=== PATIENT | male | born 1945 | race Caucasian/White ===

== ENCOUNTER → 2023-06-03 | Outpatient (CLI) | payer MEDICARE ==
[2023-06-03 14:57] LABS: Basophils # (A) 0.03 X 10*3/uL (0.00-0.10); Basophils % (A) 0.4 %; Eosinophils # (A) 0.11 X 10*3/uL (0.04-0.35); Eosinophils % (A) 1.3 %; HCT 41.5 % (39.6-50.0); HGB 13.6 g/dL (13.0-17.0); Lymphocytes # (A) 1.47 X 10*3/uL (0.90-5.00); Lymphocytes % (A) 17.7 %; MCH 31.4 pg (27.0-32.0); MCHC 32.8 g/dL (32.0-37.0); MCV 95.8 FL (80.0-97.0); Mean Platelet Volume 10.5 FL (9.5-12.2); Monocytes # (A) 0.54 X 10*3/uL (0.20-1.00); Monocytes % (A) 6.5 %; NRBC Per 100 WBC 0 X 10*3/uL (0.00-0.01); Neutrophils # (A) 6.12 X 10*3/uL (1.80-7.70); Neutrophils % (A) 73.9 %; Platelet Count 174 X 10*3/uL (140-440); RBC 4.33 X 10*6/uL (4.40-5.60); RDW 13.2 % (11.5-14.5); WBC 8.29 X 10*3/uL (4.50-10.00)
== END | disposition home or self-care (01) ==
LOC: LABPAT 11:27
PROVIDERS: ATTEND Surgery
DX: Z01.818 Encounter for other preprocedural examination (principal); K40.90 Unilateral inguinal hernia, without obstruction or gangrene, not specified as recurrent
CPT/HCPCS: 85025; 86850; 86900; 86901; 93005

== ENCOUNTER 2023-06-18 06:45 | Day surgery (SDC) | payer MEDICARE ==
[2023-06-16 09:34] VITALS: BMI 29.0
[~2023-06-18 06:45] MED LIST: ACETAMINOPHEN TAB 500 MG TAB PO PRN; DEXAMETHASONE SOD PHOSPHATE 4 MG/ML 1 ML VIAL IV ONE; HEPARIN SODIUM,PORCINE 5,000 UNIT/ML 1 ML VIAL SQ PRN; LACTATED RINGERS 1,000 ML IV SCH; LIDOCAINE 1% (10MG/ML) FOR IV START INTRADERMA PRN; ONDANSETRON 4 MG/2 ML VIAL IVP ONE; droPERidol 5 MG/2 ML VIAL IVP ONE
[2023-06-18] MEDS ORDERED: fentaNYL (PF) 50 MCG/ML 2 ML AMP IV PRN (07:00)
[2023-06-18 07:28] VITALS: RESP 16
[2023-06-18] MEDS ORDERED: SODIUM CHLORIDE 0.9% 1,000 ML IV ONE (07:30)
[2023-06-18 07:44] LABS: Glucose,Whole Blood 133 mg/dL (70-110)
[2023-06-18 08:16] LABS: Partial Thromboplastin Time 23.2 sec (22.0-30.0); Prothrombin Time 11.2 sec (10.0-12.5)
[2023-06-18 08:55] LABS: ALT 27 U/L (4-49); AST 31 U/L (17-59); African American GFR (CKD) 37 (>60 ml/min/1.73 sqM); Albumin 3.8 g/dL (3.5-5.0); Alkaline Phosphatase 56 U/L (38-126); Anion Gap 11 mmol/L; Blood Urea Nitrogen 42 mg/dL (9-20); Calcium 9.2 mg/dL (8.4-10.2); Carbon Dioxide 19 mmol/L (22-30); Chloride 108 mmol/L (98-107); Glucose 135 mg/dL (74-99); Non-African American GFR(CKD) 32 (>60 ml/min/1.73 sqM); Potassium 4.1 mmol/L (3.5-5.1); Sodium 138 mmol/L (137-145); Total Bilirubin 0.8 mg/dL (0.2-1.3); Total Protein 6.8 g/dL (6.3-8.2)
[2023-06-18] MEDS ORDERED: fentaNYL (PF) 50 MCG/ML 2 ML AMP ONE (08:57)
[2023-06-18] MEDS ORDERED: ETOMIDATE 2 MG/ML 10 ML VIAL ONE (08:57)
[2023-06-18] MEDS ORDERED: ROCURONIUM 10 MG/ML (5 ML VIAL) IV ONE (08:57)
[2023-06-18] MEDS ORDERED: LABETALOL 5 MG/ML VIAL MDV ONE (08:57)
[2023-06-18] MEDS ORDERED: SUCCINYLCHOLINE CHLORIDE 200 MG/10 ML VIAL IV ONE (08:57)
[2023-06-18] MEDS ORDERED: LIDOCAINE 1% INJ 10MG/ML (20 ML MDV) ONE (08:57)
[2023-06-18] MEDS ORDERED: NEOSTIGMINE 1 MG/ML 10 ML VIAL ONE (08:57)
[2023-06-18] MEDS ORDERED: GLYCOPYRROLATE 0.2 MG/ML 2 ML VIAL ONE (08:57)
[2023-06-18] MEDS ORDERED: HEPARIN SODIUM,PORCINE 5,000 UNIT/ML 1 ML VIAL SQ ONE (08:59)
[2023-06-18] MEDS ORDERED: LIDOCAINE 0.5%-EPI 1:200,000 50 ML VIAL SQ ONE (09:40)
--- NOTE | 2023-06-18 10:12 | P.OP ---
Date of Procedure: 06/18/23 Preoperative Diagnosis: Left inguinal hernia Postoperative Diagnosis: Left inguinal hernia Procedure(s) Performed: Laparoscopic robotic system repair of left we will hernia Partial omentectomy Transversus abdominis plane block Anesthesia: UGO Surgeon: Quinton Neri Pathology: other (Omentum) Condition: stable Disposition: PACU Description of Procedure: The patient's placed on the operating table in the supine position. The patient received general anesthesia. The patient's abdomen was prepped and draped in usual sterile fashion. The skin was anesthetized 1% local Xylocaine at the incision sites. Using an 11 blade a skin incision was made at the umbilicus. The fascia was grasped with a Rayray and then the peritoneal cavity was entered with the Veress needle. Position of the Veress needle was confirmed with a positive drop test. After adequate insufflation a 5 mm trocar was placed into the peritoneal cavity. The Laparoscope was placed the peritoneal cavity. And a robotic 8 mm trocar was placed in the right lateral position and then another 8 mm robotic trochars placed in the left lateral position. The original 5 mm trocar was exchanged for a 12 mm trocar. The A four-quadrant transversus abdominis plane block was performed with 1% local Xylocaine. The patient was placed in reverse Trendelenburg and then the patient was docked to the robot. In the pelvis today. Portion of omentum which was infarcted. This was dissected free sent to pathology. Next the peritoneum over top of the hernia was incised and then using blunt and sharp dissection and electrocautery the hernia sac was dissected free from the floor of the inguinal canal. The hernia sac was completely reduced into the peritoneal cavity. And then using the Pro it desktop support technician mesh the hernia was repaired. The peritoneum was then sutured with 20V lock suture. The patient was then undocked the robot. The needle was withdrawn from the peritoneal cavity. The umbilical trocar site was closed with 0 Ethibond suture. The skin was closed interrupted 3-0 Monocryl suture. Dermabond dressing was applied. Patient was sent to recovery in stable condition.
[2023-06-18 10:18] VITALS: TEMP 97.8
[2023-06-18 10:32] LABS: Glucose,Whole Blood 219 mg/dL (70-110)
[2023-06-18 12:15] VITALS: BP 158/76; PULSE 71
== END 2023-06-18 12:46 | disposition home or self-care (01) ==
LOC: OR 06:45
PROVIDERS: ATTEND Surgery
DX: K40.90 Unilateral inguinal hernia, without obstruction or gangrene, not specified as recurrent (principal); I96 Gangrene, not elsewhere classified
CPT/HCPCS: 49650; S2900; 80053; 85610; 85730; 86850; 86900; 86901; 88305

== ENCOUNTER → 2023-08-25 | Outpatient (CLI) | payer MEDICARE ==
--- NOTE | 2023-08-25 18:18 | MR ---
EXAMINATION TYPE: MR Prostate wo/w con DATE OF EXAM: 08/25/2023 9:08 AM COMPARISON: None. CLINICAL INDICATION:Male, 78 years old with history of R97.20 ELEVATED PROSTATE SPECIFIC ANTIGEN; Miriam vated PSA. TECHNIQUE: Multi-planar, multi-sequence imaging of the pelvis is performed prior to and following the uncomplicated administration of bolus intravenous gadolinium. CONTRAST: 8 Gadavist Interpretive Criteria: PI-RADS v2.1 SERUM PSA: PSA 3--24 = 9.05 PSA prior to this one is 6.25 SURGICAL PATHOLOGY: No data available. FINDINGS: Prostatic dimensions: 5.8 x 6.9 x 4.7 cm. Ellipsoid Volume:98.49 (PSA density=0.09 ng/mL/mL) CENTRAL GLAND (Central and Transition Zones/CZ+TZ): Low T2 high DWI and low ADC lesion within the right central gland apex measuring 15 x 13 x 17 mm. The re is arterial enhancement within this lesion. (PI-RADS 5) PERIPHERAL ZONE (PZ): Bilateral linear, indistinct wedgelike areas of low ADC, and low T2 signal, No evidence of masslike a bnormality, or localized perfusional hypervascularity, to further suggest a focus of clinically signi ficant prostate cancer. (PI-RADS 2) SEMINAL VESICLES (SV): Symmetric and unremarkable. PERIPROSTATIC TISSUES: Unremarkable. LYMPH NODES: No enlarged pelvic lymph node. REMAINING PELVIS: Bladder wall is within normal limits given distention. No abnormal free or organized intrapelvic fluid collection. No pathologic bowel dilation or mural thickening. No hernia visualized Small bilateral hydroceles. OSSEOUS STRUCTURES: No suspicious osseous abnormality. IMPRESSION: 1. PI-RADS 5 lesion in the right central gland apex measuring 15 x 13 mm. 2. Substantial BPH, estimated gland volume 98.49 mL. 3. No suspicious osseous lesion. No lymphadenopathy. No evidence of prostate adenocarcinoma involving the periprostatic tissues.
== END | disposition home or self-care (01) ==
LOC: RADMRIMAIN 07:30
PROVIDERS: ATTEND Urology
DX: N40.0 Benign prostatic hyperplasia without lower urinary tract symptoms (principal); R97.20 Elevated prostate specific antigen [PSA]
CPT/HCPCS: 72197; A9585

== ENCOUNTER 2023-09-03 13:07 | Emergency (ER) | payer MEDICARE ==
--- NOTE | 2023-09-03 14:05 | XR ---
EXAMINATION TYPE: XR chest 2V DATE OF EXAM: 09/03/2023 1:33 PM CLINICAL INDICATION:Male, 78 years old with history of Weakness; [facility] COMPARISON: None TECHNIQUE: XR chest 2V Frontal and lateral views of the chest. FINDINGS: Lungs/Pleura: Prominent interstitial lung markings are seen scattered throughout the lungs. No eviden ce of focal consolidation, pneumothorax or pleural effusion. Pulmonary vascularity: Unremarkable. Heart/mediastinum: Cardiomediastinal silhouette is unremarkable. Musculoskeletal: No acute osseous pathology. IMPRESSION: Increased interstitial lung markings without acute pulmonary process.
--- NOTE | 2023-09-03 14:09 | ED ---
Weakness HPI - General Source: patient, family, RN notes reviewed Mode of arrival: wheelchair Limitations: no limitations <Elizabeth Sherwood - Last Filed: 09/03/23 14:08> - General Source: patient, family, RN notes reviewed Mode of arrival: wheelchair Limitations: no limitations <Anel Gunter - Last Filed: 09/04/23 20:34> - General Chief complaint: Weakness Stated complaint: Irregular BP 181/80 Time Seen by Provider: 09/03/23 14:08 - History of Present Illness Initial comments: Patient is a 78-year-old male presented to the ER with chief complaint of weakness and dizziness. states he started to have weak legs this morning around 7 AM. He also was hypertensive per . The symptoms are similar to previous heart attack. Patient denies any current pain. (Elizabeth Sherwood) 78-year-old male presents emergency department chief complaint of weakness and fatigue. He states that this morning after he took out his dog for a walk he had a weakness sensation in his legs and associated headache. Patient states that he has been feeling off this morning. Denies shortness of breath, cough, congestion, chest pain or pressure. Patient has a history of 2 MIs in . Patient denies history of stroke. Patient states that he has cervical stenosis in his spine that leads to chronic headaches that he sometimes suffers from for 3 weeks at a time. Denies focal neurological deficits at time of weakness such as slurred speech, muscle weakness, facial drooping. (Anel Gunter) - Related Data Home Medications Medication Instructions Recorded Confirmed Aspirin 81 mg PO DAILY 11/03/13 09/03/23 Ezetimibe [Zetia] 10 mg PO DAILY 11/03/13 09/03/23 Isosorbide Mononitrate [Imdur] 30 mg PO DAILY 11/03/13 09/03/23 Atorvastatin [Lipitor] 80 mg PO DAILY 06/16/23 09/03/23 Insulin Glargine,Hum.rec.anlog 55 units SQ BID 06/16/23 09/03/23 [Jose Antonio Solostrobert] Umeclidinium Olds [Incruse 1 puff INHALATION RT-DAILY PRN 06/16/23 09/03/23 Ellipta] Warfarin [Coumadin] 4 mg PO SA@2100 06/16/2309/02/24 Warfarin [Coumadin] 9 mg PO SUMOTUWETHFR@209906/16/23 09/03/23 busPIRone HCL [Buspar] 7.5 mg PO BID 06/16/23 09/03/23 hydroCHLOROthiazide 12.5 mg PO DAILY 06/16/23 09/03/23 lisinopriL [Prinivil] 20 mg PO BID 06/16/23 09/03/23 Albuterol Inhaler [Ventolin Hfa 2 puff INHALATION RT-Q6H PRN 09/03/23 09/03/23 Inhaler] Budesonide/Formoterol Fumarate 2 puff INHALATION RT-BID PRN 09/03/23 09/03/23 [Symbicort 160-4.5 Mcg Inhaler] Celecoxib [CeleBREX] 200 mg PO HS 09/03/23 09/03/23 Cholecalciferol [Vitamin D3 (25 25 mcg PO DAILY 09/03/23 09/03/23 Mcg = 1000 Iu)] Metoprolol Succinate [Metoprolol 25 mg PO DAILY 09/03/23 09/03/23 Succinate ER] Omeprazole [PriLOSEC] 20 mg PO DAILY 09/03/23 09/03/23 Tamsulosin [Flomax] 0.4 mg PO HS 09/03/23 09/03/23 Warfarin [Coumadin] 3 mg PO SA@209909/03/23 09/03/23 Allergies Allergy/AdvReac Type Severity Reaction Status Date / Time codeine Allergy Anaphylaxis Verified 09/03/23 18:06 Review of Systems ROS Other: All systems not noted in ROS Statement are negative. <Elizabeth Sherwood - Last Filed: 09/03/23 14:08> ROS Other: All systems not noted in ROS Statement are negative. <Anel Gunter - Last Filed: 09/04/23 20:34> ROS Statement: Those systems with pertinent positive or pertinent negative responses have been documented in the HPI. Past Medical History Past Medical History: Blood Disorder, Coronary Artery Disease (CAD), COPD, Diabetes Mellitus, Deep Vein Thrombosis (DVT), GERD/Reflux, Hearing Disorder / Deafness, Hyperlipidemia, Hypertension, Myocardial Infarction (VA), Osteoarthritis (OA), Pulmonary Embolus (PE), Sleep Apnea/CPAP/BIPAP Additional Past Medical History / Comment(s): Factor 5. VA X2 in 2004 "one right after the other". Hx PE in 2005, DVT in 2005. Low functioning kidneys. Migraines. No CPAP use. Circulation problems in feet and legs. Last Myocardial Infarction Date:: 2004 History of Any Multi-Drug Resistant Organisms: None Reported Past Surgical History: Hernia Repair, Orthopedic Surgery Additional Past Surgical History / Comment(s): Left elbow repair X2, hernia X2 repair - "a single and then a double". Past Anesthesia/Blood Transfusion Reactions: No Reported Reaction Past Psychological History: No Psychological Hx Reported Smoking Status: Former smoker Past Alcohol Use History: None Reported Past Drug Use History: None Reported - Past Family History Brother(s) Family Medical History: Deep Vein Thrombosis (DVT) <Elizabeth Sherwood - Last Filed: 09/03/23 14:08> General Exam Limitations: no limitations <Elizabeth Sherwood - Last Filed: 09/03/23 14:08> Limitations: no limitations General appearance: alert, in no apparent distress Head exam: Present: atraumatic, normocephalic, normal inspection Eye exam: Present: normal appearance, PERRL, EOMI. Absent: scleral icterus, conjunctival injection, periorbital swelling ENT exam: Present: normal exam, mucous membranes moist Neck exam: Present: normal inspection. Absent: tenderness, meningismus, lymphadenopathy Respiratory exam: Present: normal lung sounds bilaterally. Absent: respiratory distress, wheezes, rales, rhonchi, stridor Cardiovascular Exam: Present: regular rate, normal rhythm, normal heart sounds. Absent: systolic murmur, diastolic murmur, rubs, gallop, clicks GI/Abdominal exam: Present: soft, normal bowel sounds. Absent: distended, tenderness, guarding, rebound, rigid Extremities exam: Present: normal inspection, full ROM, normal capillary refill. Absent: tenderness, pedal edema, joint swelling, calf tenderness Back exam: Present: normal inspection Neurological exam: Present: alert, oriented X3, CN II-XII intact Psychiatric exam: Present: normal affect, normal mood Skin exam: Present: warm, dry, intact, normal color. Absent: rash <Anel Gunter - Last Filed: 09/04/23 20:34> - General Exam Comments Initial Comments: Visual Physical Exam Vital signs reviewed General: Well-appearing, nontoxic, no acute distress. Head: Normocephalic, atraumatic Eyes: PERRLA, EOMI ENT: Airway patent Chest: Nonlabored breathing Skin: No visual rash, normal skin tone Neuro: Alert and oriented 3 Musculoskeletal: No gross abnormalities (Elizabeth Sherwood) Was pt. sent in by a medical professional or institution (, YOAN, PRINCIPAL CLERK, urgent care, hospital, or intermediate...) When possible be specific @ -[No] Did you speak to anyone other than the patient for history (EMS, parent, family, police, friend...)? What history was obtained from this source @ -[No] Did you review nursing and triage notes (agree or disagree)? Why? @ -[I reviewed and agree with nursing and triage notes] Were old charts reviewed (outside hosp., previous admission, EMS record, old EKG, old radiological studies, urgent care reports/EKG's, intermediate records)? Report findings @ -[No old charts were reviewed] Differential Diagnosis (chest pain, altered mental status, abdominal pain women, abdominal pain men, vaginal bleeding, weakness, fever, dyspnea, syncope, headache, dizziness, GI bleed, back pain, seizure, CVA, palpatations, mental health, musculoskeletal)? @ -Differential Weakness: Hypoglycemia, shock, sepsis, hyponatremia, anemia, infection, VA, ETOH, adverse medicine reaction, overdose, stroke, this is not meant to be an all-inclusive list. EKG interpreted by me (3pts min.). @ -[As above] X-rays interpreted by me (1pt min.). @ -X-ray with increased interstitial lung markings with no acute cardio process noted CT interpreted by me (1pt min.). @ -[None done] U/S interpreted by me (1pt. min.). @ -[None done] What testing was considered but not performed or refused? (CT, X-rays, U/S, labs)? Why? @ -[None] What meds were considered but not given or refused? Why? @ -[None] Did you discuss the management of the patient with other professionals (professionals i.e. , YOAN, PRINCIPAL CLERK, lab, RT, psych nurse, social worker psychiatric, airframe technical officer, teacher, emergency response officer, case supervisor)? Give summary @ -[No] Was smoking cessation discussed for >3mins.? @ -[No] Was critical care preformed (if so, how long)? @ -[No] Were there social determinants of health that impacted care today? How? (Homelessness, low income, unemployed, alcoholism, drug addiction, transportation, low edu. Level, literacy, decrease access to med. care, nursing home, rehab)? @ -[No] Was there de-escalation of care discussed even if they declined (Discuss DNR or withdrawal of care, Hospice)? DNR status @ -[No] What co-morbidities impacted this encounter? (DM, HTN, Smoking, COPD, CAD, Cancer, CVA, ARF, Chemo, Hep., AIDS, mental health diagnosis, sleep apnea, morbid obesity)? @ -[None] Was patient admitted / discharged? Hospital course, mention meds given and route, prescriptions, significant lab abnormalities, going to OR and other pertinent info. @ -Charged. 78-year-old male with chief complaint of dizziness and weakness. Patient was found to have a benign complete physical exam. Patient states that he reports elevated blood pressures at home over the past few weeks. Patient states that he is feeling better after he was given oral Tylenol and IV fluids. Patient presented no acute signs of stroke and/or heart attack. Undiagnosed new problem with uncertain prognosis? @ -[No] Drug Therapy requiring intensive monitoring for toxicity (Heparin, Nitro, Insulin, Cardizem)? @ -[No] Were any procedures done? @ -[No] Diagnosis/symptom? @ -[default] Acute, or Chronic, or Acute on Chronic? @ -[default] Uncomplicated (without systemic symptoms) or Complicated (systemic symptoms)? @ -[default] Side effects of treatment? @ -[No] Exacerbation, Progression, or Severe Exacerbation? @ -[No] Poses a threat to life or bodily function? How? (Chest pain, USA, VA, pneumonia, PE, COPD, DKA, ARF, appy, cholecystitis, CVA, Diverticulitis, Homicidal, Suici inga, threat to staff... and all critical care pts) @ -[No] (Anel Gunter) Course Vital Signs 09/03/23 09/03/23 09/03/23 13:13 16:43 18:37 Temperature 97.9 F 97.9 F 98.0 F Pulse Rate 65 59 L 58 L Respiratory 16 18 18 Rate Blood Pressure 167/77 186/95 185/98 O2 Sat by Pulse 96 97 97 Oximetry Medical Decision Making <Elizabeth Sherwood - Last Filed: 09/03/23 14:08> - Lab Data Result diagrams: 09/03/23 14:19 09/03/23 14:19 <Anel Gunter - Last Filed: 09/04/23 20:34> - Medical Decision Making I performed the quick note portion of this chart. Electronically signed by Reddy PA-C (Elizabeth Sherwood) Was pt. sent in by a medical professional or institution (YOAN Owens, PRINCIPAL CLERK, urgent care, hospital, or intermediate...) When possible be specific @ -No Did you speak to anyone other than the patient for history (EMS, parent, family, police, friend...)? What history was obtained from this source @ -No Did you review nursing and triage notes (agree or disagree)? Why? @ -I reviewed and agree with nursing and triage notes Were old charts reviewed (outside hosp., previous admission, EMS record, old EKG, old radiological studies, urgent care reports/EKG's, intermediate records)? Report findings @ -No old charts were reviewed Differential Diagnosis (chest pain, altered mental status, abdominal pain women, abdominal pain men, vaginal bleeding, weakness, fever, dyspnea, syncope, headache, dizziness, GI bleed, back pain, seizure, CVA, palpatations, mental health, musculoskeletal)? @ -Differential Weakness: Hypoglycemia, shock, sepsis, hyponatremia, anemia, infection, VA, ETOH, adverse medicine reaction, overdose, stroke, this is not meant to be an all-inclusive list. EKG interpreted by me (3pts min.). @ -none X-rays interpreted by me (1pt min.). @X-ray with increased interstitial lung markings, no acute cardio process noted CT interpreted by me (1pt min.). @ -None done U/S interpreted by me (1pt. min.). @ -None done What testing was considered but not performed or refused? (CT, X-rays, U/S, labs)? Why? @ -None What meds were considered but not given or refused? Why? @ -None Did you discuss the management of the patient with other professionals (professionals i.e. , YOAN, PRINCIPAL CLERK, lab, RT, psych nurse, social worker psychiatric, airframe technical officer, teacher, emergency response officer, case supervisor)? Give summary @ -No Was smoking cessation discussed for >3mins.? @ -No Was critical care preformed (if so, how long)? @ -No Were there social determinants of health that impacted care today? How? (Homelessness, low income, unemployed, alcoholism, drug addiction, tra nsportation, low edu. Level, literacy, decrease access to med. care, nursing home, rehab)? @ -No Was there de-escalation of care discussed even if they declined (Discuss DNR or withdrawal of care, Hospice)? DNR status @ -No What co-morbidities impacted this encounter? (DM, HTN, Smoking, COPD, CAD, Cancer, CVA, ARF, Chemo, Hep., AIDS, mental health diagnosis, sleep apnea, morbid obesity)? @ -HTN Was patient admitted / discharged? Hospital course, mention meds given and route, prescriptions, significant lab abnormalities, going to OR and other pertinent info. @ -Discharged. 78-year-old male with chief complaint of weakness. [facility] physical exam cleared of patient with no acute findings. Patient is on warfarin. Patient was given liter fluid bolus and Tylenol to aid in headache relief. Patient suffers from chronic migraines and headaches at home and takes Tylenol as needed for 20 weeks headaches. Patient does have history of cervical stenosis where his headaches normally originate from the posterior region of his head. Additionally patient was found to have elevated blood pressure readin gs multiple times in the department. Upon discharge. Patient was found to be hypertensive, patient states that he has a evening dose of lisinopril that he is scheduled to take. At this time patient is stable for discharge home due to feeling better after fluid administration and for unremarkable laboratory result findings. CBC unremarkable, CMP remarkable for slight dehydration. Discussed this case with my attending, Guzman Payne with plan for discharge Undiagnosed new problem with uncertain prognosis? @ -No Drug Therapy requiring intensive monitoring for toxicity (Heparin, Nitro, Insulin, Cardizem)? @ -No Were any procedures done? @ -No Diagnosis/symptom? @ -weakness, HTN Acute, or Chronic, or Acute on Chronic? @ -acute Uncomplicated (without systemic symptoms) or Complicated (systemic symptoms)? @ -uncomplcaited Side effects of treatment? @ -No Exacerbation, Progression, or Severe Exacerbation? @ -No Poses a threat to life or bodily function? How? (Chest pain, USA, VA, pneumonia, PE, COPD, DKA, ARF, appy, cholecystitis, CVA, Diverticulitis, Homicidal, Suicidal, threat to staff... and all critical care pts) @ -No (Anel Gunter) - Lab Data Lab Results 09/03/23 09/03/23 09/03/23 Range/Units 14:19 14:19 14:19 WBC 8.5 (3.8-10.6) k/uL RBC 4.76 (4.30-5.90) m/uL Hgb 14.7 (13.0-17.5) gm/dL Hct 45.7 (39.0-53.0) % MCV 96.1 (80.0-100.0) fL MCH 30.9 (25.0-35.0) pg MCHC 32.1 (31.0-37.0) g/dL RDW 13.7 (11.5-15.5) % Plt Count 248 (150-450) k/uL MPV 8.1 Neutrophils % 74 % Lymphocytes % 16 % Monocytes % 4 % Eosinophils % 4 % Basophils % 0 % Neutrophils # 6.3 (1.3-7.7) k/uL Lymphocytes # 1.3 (1.0-4.8) k/uL Monocytes # 0.4 (0-1.0) k/uL Eosinophils # 0.3 (0-0.7) k/uL Basophils # 0.0 (0-0.2) k/uL PT 20.0 H (10.0-12.5) sec INR 2.0 H (<1.2) APTT 28.6 (22.0-30.0) sec Sodium 139 (137-145) mmol/L Potassium 4.2 (3.5-5.1) mmol/L Chloride 110 H (98-107) mmol/L Carbon Dioxide 16 L (22-30) mmol/L Anion Gap 13 mmol/L BUN 37 H (9-20) mg/dL Creatinine 1.84 H (0.66-1.25) mg/dL Est GFR (CKD-EPI)AfAm 40 (>60 ml/min/1.73 sqM) Est GFR (CKD-EPI)NonAf 34 (>60 ml/min/1.73 sqM) Glucose 212 H (74-99) mg/dL Plasma Lactic Acid Damir (0.7-2.0) mmol/L Calcium 9.1 (8.4-10.2) mg/dL Magnesium 2.0 (1.6-2.3) mg/dL Total Bilirubin 0.3 (0.2-1.3) mg/dL AST 33 (17-59) U/L ALT 39 (4-49) U/L Alkaline Phosphatase 60 (38-126) U/L Troponin I (0.000-0.034) ng/mL Total Protein 6.7 (6.3-8.2) g/dL Albumin 3.9 (3.5-5.0) g/dL Influenza Type A (PCR) (Not Detectd) Influenza Type B (PCR) (Not Detectd) RSV (PCR) (Not Detectd) SARS-CoV-2 (PCR) (Not Detectd) 09/03/23 09/03/23 09/03/23 Range/Units 14:19 14:19 14:19 WBC (3.8-10.6) k/uL RBC (4.30-5.90) m/uL Hgb (13.0-17.5) gm/dL Hct (39.0-53.0) % MCV (80.0-100.0) fL MCH (25.0-35.0) pg MCHC (31.0-37.0) g/dL RDW (11.5-15.5) % Plt Count (150-450) k/uL MPV Neutrophils % % Lymphocytes % % Monocytes % % Eosinophils % % Basophils % % Neutrophils # (1.3-7.7) k/uL Lymphocytes # (1.0-4.8) k/uL Monocytes # (0-1.0) k/uL Eosinophils # (0-0.7) k/uL Basophils # (0-0.2) k/uL PT (10.0-12.5) sec INR (<1.2) APTT (22.0-30.0) sec Sodium (137-145) mmol/L Potassium (3.5-5.1) mmol/L Chloride (98-107) mmol/L Carbon Dioxide (22-30) mmol/L Anion Gap mmol/L BUN (9-20) mg/dL Creatinine (0.66-1.25) mg/dL Est GFR (CKD-EPI)AfAm (>60 ml/min/1.73 sqM) Est GFR (CKD-EPI)NonAf (>60 ml/min/1.73 sqM) Glucose (74-99) mg/dL Plasma Lactic Acid Damir 1.2 (0.7-2.0) mmol/L Calcium (8.4-10.2) mg/dL Magnesium (1.6-2.3) mg/dL Total Bilirubin (0.2-1.3) mg/dL AST (17-59) U/L ALT (4-49) U/L Alkaline Phosphatase (38-126) U/L Troponin I <0.012 (0.000-0.034) ng/mL Total Protein (6.3-8.2) g/dL Albumin (3.5-5.0) g/dL Influenza Type A (PCR) Not Detected (Not Detectd) Influenza Type B (PCR) Not Detected (Not Detectd) RSV (PCR) Not Detected (Not Detectd) SARS-CoV-2 (PCR) Not Detected (Not Detectd) Disposition <Elizabeth Sherwood - Last Filed: 09/03/23 14:08> Is patient prescribed a controlled substance at d/c from ED?: No Time of Disposition: 18:03 <Anel Gunter - Last Filed: 09/04/23 20:34> Clinical Impression: Headache, Weakness Narrative: Please return to the Emergency Department if symptoms worsen or any other concerns. (Anel Gunter) Disposition: HOME SELF-CARE Condition: Good Instructions (If sedation given, give patient instructions): Weakness (ED) Referrals: Camille Jane DO [Primary Care Provider] - 1-2 days
[2023-09-03 14:48] LABS: Basophils % (A) 0 %; Eosinophils # (A) 0.3 k/uL (0-0.7); Eosinophils % (A) 4 %; HCT 45.7 % (39.0-53.0); HGB 14.7 gm/dL (13.0-17.5); Lymphocytes # (A) 1.3 k/uL (1.0-4.8); Lymphocytes % (A) 16 %; MCH 30.9 pg (25.0-35.0); MCHC 32.1 g/dL (31.0-37.0); MCV 96.1 fL (80.0-100.0); Mean Platelet Volume 8.1; Monocytes # (A) 0.4 k/uL (0-1.0); Monocytes % (A) 4 %; Neutrophils # (A) 6.3 k/uL (1.3-7.7); Neutrophils % (A) 74 %; Platelet Count 248 k/uL (150-450); RBC 4.76 m/uL (4.30-5.90); RDW 13.7 % (11.5-15.5); WBC 8.5 k/uL (3.8-10.6)
[2023-09-03 15:00] LABS: Partial Thromboplastin Time 28.6 sec (22.0-30.0)
[2023-09-03 15:07] LABS: ALT 39 U/L (4-49); AST 33 U/L (17-59); African American GFR (CKD) 40 (>60 ml/min/1.73 sqM); Albumin 3.9 g/dL (3.5-5.0); Alkaline Phosphatase 60 U/L (38-126); Anion Gap 13 mmol/L; Blood Urea Nitrogen 37 mg/dL (9-20); Calcium 9.1 mg/dL (8.4-10.2); Carbon Dioxide 16 mmol/L (22-30); Chloride 110 mmol/L (98-107); Glucose 212 mg/dL (74-99); Non-African American GFR(CKD) 34 (>60 ml/min/1.73 sqM); Potassium 4.2 mmol/L (3.5-5.1); Sodium 139 mmol/L (137-145); Total Bilirubin 0.3 mg/dL (0.2-1.3); Total Protein 6.7 g/dL (6.3-8.2)
[2023-09-03] MEDS: SODIUM CHLORIDE 0.9% 1,000 ML IV STA (16:40)
[2023-09-03] MEDS: ACETAMINOPHEN TAB 500 MG TAB PO STA (16:41)
[2023-09-03 17:01] VITALS: RESP 18
[2023-09-03 19:14] VITALS: BP 185/98; PULSE 58; TEMP 98
== END 2023-09-03 18:40 | disposition home or self-care (01) ==
LOC: EC 13:07
DX: I10 Essential (primary) hypertension (principal); E86.0 Dehydration; Z87.891 Personal history of nicotine dependence; Z88.5 Allergy status to narcotic agent
CPT/HCPCS: 36415; 71046; 80053; 83605; 83735; 84484; 85025; 85610; 85730; 87636; 93005; 96360; 99285

== ENCOUNTER → 2023-09-19 | Outpatient (CLI) | payer MEDICARE ==
[2023-09-20 05:01] LABS: BUN/Creat Ratio 15.26 Ratio (12.00-20.00); Blood Urea Nitrogen 35.1 mg/dL (9.0-27.0); Calcium 9.1 mg/dL (8.7-10.3); Carbon Dioxide 22.9 mmol/L (21.6-31.8); Chloride 102 mmol/L (96-109); Glucose 125 mg/dL (70-110); Potassium 4.3 mmol/L (3.5-5.5); Sodium 137 mmol/L (135-145)
[2023-09-20 05:12] LABS: Basophils # (A) 0.04 X 10*3/uL (0.00-0.10); Basophils % (A) 0.4 %; Eosinophils # (A) 0.18 X 10*3/uL (0.04-0.35); Eosinophils % (A) 1.9 %; HGB 14.2 g/dL (13.0-17.0); Lymphocytes % (A) 21.4 %; MCH 31.5 pg (27.0-32.0); MCHC 32.3 g/dL (32.0-37.0); MCV 97.6 FL (80.0-97.0); Mean Platelet Volume 10.4 FL (9.5-12.2); Monocytes % (A) 8.6 %; NRBC Per 100 WBC 0 X 10*3/uL (0.00-0.01); Neutrophils # (A) 6.28 X 10*3/uL (1.80-7.70); Neutrophils % (A) 67.2 %; Platelet Count 325 X 10*3/uL (140-440); RBC 4.51 X 10*6/uL (4.40-5.60); RDW 14.1 % (11.5-14.5); WBC 9.35 X 10*3/uL (4.50-10.00)
== END | disposition home or self-care (01) ==
LOC: LABPAT 15:10
PROVIDERS: ATTEND Urology
DX: Z01.812 Encounter for preprocedural laboratory examination (principal); R97.20 Elevated prostate specific antigen [PSA]
CPT/HCPCS: 36415; 80048; 85025

== ENCOUNTER → 2023-10-24 | Outpatient (CLI) | payer MEDICARE ==
[2023-10-25 02:46] LABS: Basophils # (A) 0.04 X 10*3/uL (0.00-0.10); Basophils % (A) 0.4 %; Eosinophils # (A) 0.13 X 10*3/uL (0.04-0.35); Eosinophils % (A) 1.4 %; HCT 42.2 % (39.6-50.0); HGB 13.6 g/dL (13.0-17.0); Lymphocytes # (A) 1.69 X 10*3/uL (0.90-5.00); Lymphocytes % (A) 18.7 %; MCHC 32.2 g/dL (32.0-37.0); MCV 96.1 FL (80.0-97.0); Mean Platelet Volume 10.2 FL (9.5-12.2); Monocytes # (A) 0.73 X 10*3/uL (0.20-1.00); Monocytes % (A) 8.1 %; NRBC Per 100 WBC 0 X 10*3/uL (0.00-0.01); Neutrophils # (A) 6.42 X 10*3/uL (1.80-7.70); Neutrophils % (A) 71.2 %; Platelet Count 231 X 10*3/uL (140-440); RBC 4.39 X 10*6/uL (4.40-5.60); RDW 14.1 % (11.5-14.5); WBC 9.03 X 10*3/uL (4.50-10.00)
[2023-10-25 03:03] LABS: BUN/Creat Ratio 17.55 Ratio (12.00-20.00); Blood Urea Nitrogen 38.6 mg/dL (9.0-27.0); Calcium 9.5 mg/dL (8.7-10.3); Carbon Dioxide 19.6 mmol/L (21.6-31.8); Chloride 103 mmol/L (96-109); Glucose 97 mg/dL (70-110); Potassium 4.8 mmol/L (3.5-5.5); Sodium 139 mmol/L (135-145)
== END | disposition home or self-care (01) ==
LOC: LABPAT 15:09
PROVIDERS: ATTEND Urology
DX: Z01.812 Encounter for preprocedural laboratory examination (principal); R97.20 Elevated prostate specific antigen [PSA]
CPT/HCPCS: 80048; 85025

== ENCOUNTER 2023-10-28 12:59 | Day surgery (SDC) | payer MEDICARE ==
--- NOTE | 2023-10-28 11:07 | P.HPIHPCON ---
History of Present Illness H&P Date: 10/28/23 Chief Complaint: prostate cancer This is a 78-year-old male with history of elevated PSA, underwent a prostate MRI that showed evidence of a PI-RADS 5 lesion along the right apex, discussed with him given this finding I do recommend proceeding with an MRI fusion biopsy. Aware the risk which includes but not limited to bleeding, infection, sepsis. Risk of anesthesia was also discussed. He understood all the risk and agreed to proceed Consent for Procedure: I have explained the operation/procedure to the patient, including the risks, benefits, side effects, alternative therapies (including not receiving the proposed treatment or service), the likelihood of the patient achieving his/her goals, and potential recuperation problems for the procedure/sedation/analgesia, as well as any blood products, if indicated. I also explained to the patient the risks, benefits and side effects of the alternatives, as well as the risks related to not receiving the proposed procedure, care, treatment, or services. Past Medical History Past Medical History: Blood Disorder, Coronary Artery Disease (CAD), COPD, Diabetes Mellitus, Deep Vein Thrombosis (DVT), GERD/Reflux, Hearing Disorder / Deafness, Hyperlipidemia, Hypertension, Myocardial Infarction (SC), Osteoarthritis (OA), Pulmonary Embolus (PE), Sleep Apnea/CPAP/BIPAP Additional Past Medical History / Comment(s): Factor 5. SC X2 in 2004 "one right after the other". Hx PE in 2004, DVT in 2005. Low functioning kidneys. Migraines. No CPAP use. Circulation problems in feet and legs. Last Myocardial Infarction Date:: 2004 History of Any Multi-Drug Resistant Organisms: None Reported Past Surgical History: Hernia Repair, Orthopedic Surgery Additional Past Surgical History / Comment(s): Left elbow repair X2, hernia X2 repair - "a single and then a double". Past Anesthesia/Blood Transfusion Reactions: No Reported Reaction Past Psychological History: No Psychological Hx Reported Smoking Status: Former smoker Past Alcohol Use History: None Reported Additional Past Alcohol Use History / Comment(s): Quit smoking in 2004. Past Drug Use History: None Reported - Past Family History Brother(s) Family Medical History: Deep Vein Thrombosis (DVT) Medications and Allergies Home Medications Medication Instructions Recorded Confirmed Type Aspirin 81 mg PO DAILY 11/03/13 10/23/23 History Ezetimibe [Zetia] 10 mg PO QAM 11/03/13 10/23/23 History Isosorbide Mononitrate [Imdur] 30 mg PO QAM 11/03/13 10/23/23 History Atorvastatin [Lipitor] 80 mg PO HS 06/16/23 10/23/23 History Insulin Glargine,Hum.rec.anlog 55 units SQ BID 06/16/23 10/23/23 History [Toujerodolfo Solostar] Umeclidinium [place] [Incruse 1 puff INHALATION RT-DAILY PRN 06/16/23 10/23/23 History Ellipta] Warfarin [Coumadin] 9 mg PO SUMOTUWETHFR@2100 06/16/23 10/23/23 History busPIRone HCL [Buspar] 7.5 mg PO BID 06/16/23 10/23/23 History hydroCHLOROthiazide 12.5 mg PO QAM 06/16/23 10/23/23 History lisinopriL [Prinivil] 20 mg PO BID 06/16/23 10/23/23 History Albuterol Inhaler [Ventolin Hfa 2 puff INHALATION RT-Q6H PRN 09/03/23 10/23/23 History Inhaler] Budesonide/Formoterol Fumarate 2 puff INHALATION RT-BID PRN 09/03/23 10/23/23 History [Symbicort 160-4.5 Mcg Inhaler] Celecoxib [CeleBREX] 200 mg PO HS 09/03/23 10/23/23 History Cholecalciferol [Vitamin D3 (25 25 mcg PO DAILY 09/03/23 10/23/23 History Mcg = 1000 Iu)] Metoprolol Succinate [Metoprolol 25 mg PO DAILY 09/03/23 10/23/23 History Succinate ER] Omeprazole [PriLOSEC] 20 mg PO DAILY 09/03/23 10/23/23 History Tamsulosin [Flomax] 0.4 mg PO HS 09/03/23 10/23/23 History Dulaglutide [Trulicity] 0.75 mg SQ TU 09/22/23 10/23/23 History Unk Fish Oil 1 tab PO DAILY 09/22/23 10/23/23 History Warfarin [Coumadin] 7 mg PO SA 09/22/23 10/23/23 History Allergies Allergy/AdvReac Type Severity Reaction Status Date / Time codeine Allergy Anaphylaxis Verified 10/23/23 11:57 Surgical - Exam - General no distress, no pain - Eyes normal ocular movement, no pale - ENT normal nares, normal mucosa - Respiratory normal expansion, normal respiratory effort Assessment and Plan Assessment: OR for MRI fusion biopsy of the prostate
[~2023-10-28 12:59] MED LIST changes: -ACETAMINOPHEN TAB 500 MG TAB PO PRN; -HEPARIN SODIUM,PORCINE 5,000 UNIT/ML 1 ML VIAL SQ PRN; +HYDROmorphone 0.5 MG/0.5 ML SYRINGE IVP PRN; -LACTATED RINGERS 1,000 ML IV SCH; +MIDAZOLAM 2 MG/2 ML VIAL IV PRN; -droPERidol 5 MG/2 ML VIAL IVP ONE
[2023-10-28] MEDS: LACTATED RINGERS 1,000 ML IV SCH (13:28)
[2023-10-28] MEDS: GENTAMICIN 40 MG/ML 2 ML VIAL IM PRN (13:42)
[2023-10-28 13:44] LABS: Glucose,Whole Blood 115 mg/dL (70-110)
[2023-10-28 14:27] VITALS: RESP 16; TEMP 97.6
[2023-10-28] MEDS ORDERED: PHENYLEPHRINE 10 MG/ML VIAL ONE (14:38)
[2023-10-28] MEDS ORDERED: MIDAZOLAM 2 MG/2 ML VIAL ONE (14:38)
[2023-10-28] MEDS ORDERED: fentaNYL (PF) 50 MCG/ML 2 ML AMP ONE (14:38)
[2023-10-28] MEDS ORDERED: PROPOFOL 10 MG/ML 20 ML VIAL IV ONE (14:38)
--- NOTE | 2023-10-28 14:58 | P.OP ---
Date of Procedure: 10/28/23 Preoperative Diagnosis: Elevated PSA Postoperative Diagnosis: Same Procedure(s) Performed: MRI fusion biopsies of the prostate Implants: None Anesthesia: MAC Surgeon: Clark Goodwin Estimated Blood Loss (ml): 5 Pathology: other (prostate biopsies) Condition: stable Disposition: PACU Indications for Procedure: This is a 78-year-old male with history of elevated PSA, underwent a prostate MRI that showed evidence of a PI-RADS 5 lesion along the right apex, discussed with him given this finding I do recommend proceeding with an MRI fusion biopsy. Aware the risk which includes but not limited to bleeding, infection, sepsis. Risk of anesthesia was also discussed. He understood all the risk and agreed to proceed Description of Procedure: The patient was taken to the operating room and placed in the left lateral decubitus position. The Dafiti transrectal ultrasound probe was placed intrarectally. It was then placed within the stand of the [employer] MRI/TRUS Fusion for Prostate Biopsy system. The prostate was imaged in both the axial and sagittal planes,L. Using the Biopsy gun, 4 biopsies were obtained from the target lesion, there were was one lesions, . The remaining 12 biopsies of the peripheral zone were obtained utilizing a standard template. Once the procedure was completed, the ultrasound probe was removed. The patient tolerated the procedure well was taken to the recovery room stable condition
[2023-10-28 15:15] LABS: Glucose,Whole Blood 106 mg/dL (70-110)
[2023-10-28 15:25] VITALS: BP 124/71; PULSE 78
== END 2023-10-28 15:40 | disposition home or self-care (01) ==
LOC: OR 12:59
PROVIDERS: ATTEND Urology
DX: C61 Malignant neoplasm of prostate (principal); I25.10 Atherosclerotic heart disease of native coronary artery without angina pectoris; J44.9 Chronic obstructive pulmonary disease, unspecified; E11.9 Type 2 diabetes mellitus without complications; K21.9 Gastro-esophageal reflux disease without esophagitis; I10 Essential (primary) hypertension; E78.5 Hyperlipidemia, unspecified; M19.90 Unspecified osteoarthritis, unspecified site; I25.2 Old myocardial infarction; Z86.711 Personal history of pulmonary embolism; Z98.890 Other specified postprocedural states; Z86.718 Personal history of other venous thrombosis and embolism; Z87.891 Personal history of nicotine dependence; Z79.4 Long term (current) use of insulin; Z79.82 Long term (current) use of aspirin; Z86.73 Personal history of transient ischemic attack (TIA), and cerebral infarction without residual deficits; Z79.899 Other long term (current) drug therapy; Z79.51 Long term (current) use of inhaled steroids; Z88.5 Allergy status to narcotic agent
CPT/HCPCS: 55700; 88344; 88305; J2250; J1580; J3010; J2704; J2371

== ENCOUNTER → 2023-12-04 | Outpatient (CLI) | payer MEDICARE ==
--- NOTE | 2023-12-09 17:43 | NM ---
EXAMINATION TYPE: NM bone scan whole body DATE OF EXAM: 12/09/2023 COMPARISON: NONE CLINICAL INDICATION: Male, 78 years old with history of C61 prostate ca; TECHNIQUE: Delayed whole-body scanning was performed following the injection of 23.2 mCi Tc 99m MDP. Images acquired 3 hours post injection. FINDINGS: There is scattered degenerative tracer activity, particularly at the elbows, shoulders, sternoclavicu lar joints, knees, and scattered throughout the posterior elements of the mid to lower thoracic spine as well as the lower lumbar spine. No suspicious distribution of tracer activity. IMPRESSION: Degenerative tracer activity as outlined above. No scintigraphic evidence for osseous metastatic dise ase.
== END | disposition home or self-care (01) ==
LOC: RADNMMAIN 10:47
PROVIDERS: ATTEND Urology
DX: C61 Malignant neoplasm of prostate (principal)
CPT/HCPCS: 78306; A9503

== ENCOUNTER → 2024-03-22 | Outpatient (CLI) | payer MEDICARE | END | disposition home or self-care (01) | LOC: LABWHC1 10:27 | PROVIDERS: ATTEND Radiology Radiation Oncology | CPT/HCPCS: 36415; 84153 ==

== ENCOUNTER → 2024-08-11 | Outpatient (CLI) | payer MEDICARE | END | disposition home or self-care (01) | LOC: LABWHC1 11:25 | PROVIDERS: ATTEND Radiology Radiation Oncology | DX: C61 Malignant neoplasm of prostate (principal); Z79.818 Long term (current) use of other agents affecting estrogen receptors and estrogen levels | CPT/HCPCS: 36415; 84153 ==